=== PATIENT | female | born 1955 | race Two or more races ===

== ENCOUNTER 2022-04-30 11:45 | Inpatient (IN) | payer OTHER ==
[~2022-04-30] VITALS: Ht 152.4 cm; Wt 62.1 kg
[2022-05-01] MEDS ORDERED: LEVOTHYROXINE25 MCG PO (09:20)
[2022-05-01] MEDS ORDERED: ZOLOFT25 MG PO (09:20)
[2022-05-01] MEDS ORDERED: LOSARTAN POTASS50 MG PO (09:20)
[2022-05-01] MEDS ORDERED: ECOTRIN81 MG PO (09:21)
[2022-05-06] MEDS ORDERED: OPTIVE EYE DROP15 ML (08:00)
[2022-05-06] MEDS ORDERED: DOCUSATE CALCI240 MG (08:00)
[2022-05-06] MEDS ORDERED: JENTADUETO XR1 EAC1 (08:00)
[2022-05-06] MEDS ORDERED: LANSOPRAZOLE30 MG (08:00)
[2022-05-09] MEDS ORDERED: INTESTINEX680 M1 PO (10:06)
[2022-05-09] MEDS ORDERED: HYOSCYAMINE0.125 M1 SL (10:06)
[2022-05-09] MEDS ORDERED: ULTRACET PO (10:07)
[2022-05-09] MEDS ORDERED: RECTICARE30 GM TOP (10:07)
== END 2022-05-09 14:12 | disposition home or self-care (01) | DRG 331 ==
LOC: O/R 05-06 06:44 → SURH 05-06 06:44
PROVIDERS: ADMIT Surgery; ATTEND Surgery
PROC: 0DBP4ZZ Excision of Rectum, Percutaneous Endoscopic Approach (ICD-10-PCS; 2022-05-06)
PROC: 0DJD8ZZ Inspection of Lower Intestinal Tract, Via Natural or Artificial Opening Endoscopic (ICD-10-PCS; 2022-05-06)
PROC: 0DTN4ZZ Resection of Sigmoid Colon, Percutaneous Endoscopic Approach (ICD-10-PCS; principal; 2022-05-06 08:00)
DX: K57.32 Diverticulitis of large intestine without perforation or abscess without bleeding (principal); E03.9 Hypothyroidism, unspecified; I11.9 Hypertensive heart disease without heart failure; E11.9 Type 2 diabetes mellitus without complications